=== PATIENT | male | born 1945 | race Caucasian/White ===

== ENCOUNTER → 2020-08-29 | Outpatient (CLI) | payer MEDICARE ==
[~2020-08-29] MED LIST: ALLO100T PO; APIX2.5T PO; ATOR10 PO; FISH1CAP50 PO; FOLI1TAB15 PO; FOLI1TAB61 PO; FURO40TA5 PO; GLIP5TAB11 PO; ISOS60TA4 PO; MULT-1192 PO; NITR0.4T SL; THIAM100TB PO
== END | disposition home or self-care (01) ==
LOC: SHCH 08:30
PROVIDERS: ATTEND Internal Medicine Cardiovascular Disease
DX: I50.22 Chronic systolic (congestive) heart failure (principal)
CPT/HCPCS: 93306; 93356

== ENCOUNTER → 2021-06-20 | Outpatient (CLI) | payer MEDICARE ==
[~2021-06-20] MED LIST changes: -ISOS60TA4 PO; +ISOS60TA77 PO
== END | disposition home or self-care (01) ==
LOC: RAH 11:11
PROVIDERS: ATTEND Internal Medicine Cardiovascular Disease
DX: I13.0 Hypertensive heart and chronic kidney disease with heart failure and stage 1 through stage 4 chronic kidney disease, or unspecified chronic kidney disease (principal); N18.4 Chronic kidney disease, stage 4 (severe); I50.22 Chronic systolic (congestive) heart failure; I65.23 Occlusion and stenosis of bilateral carotid arteries; R09.89 Other specified symptoms and signs involving the circulatory and respiratory systems
CPT/HCPCS: 93880

== ENCOUNTER 2021-07-09 22:09 | Inpatient (IN) | payer MEDICARE ==
[~2021-07-09] VITALS: Ht 182.9 cm; Wt 99.6 kg
[2021-07-09 22:16] VITALS: BP 143/90
[2021-07-09] MEDS ORDERED: MORPHINE 2 MG SYG IVP ONE (22:30)
[2021-07-09] MEDS ORDERED: ONDANSETRON 4MG INJ IVP ONE (22:30)
[2021-07-09 22:37] LABS: BASOPHILS % (AUTO) 0.2 % (0.0-5.0); HEMATOCRIT 44.7 % (42-54); LYMPHOCYTES % (AUTO) 5.2 % (21.0-51.0); MEAN CORPUSCULAR HGB CONC 33.8 g/dL (32.0-36.0); MEAN CORPUSCULAR VOLUME 74.1 fL (79-99); MONOCYTES % (AUTO) 5.6 % (3.0-13.0); NEUTROPHILS % (AUTO) 88.1 % (40.0-77.0); NUCLEATED RED BLOOD CELLS 0.1 % (0.0-0.19); PLATELET COUNT (AUTO) 287 K/uL (130-400); RED BLOOD CELL COUNT(AUTO) 6.03 MIL/uL (4.50-6.20); RED CELL DISTRIBUTION WIDTH 21.2 % (11.0-15.5); WHITE BLOOD COUNT (AUTO) 23.9 K/uL (4.8-10.8)
[2021-07-09 22:45] VITALS: BP 153/81
[2021-07-09 22:53] LABS: ALBUMIN 3.7 g/dL (3.5-5.0); BILIRUBIN,TOTAL 0.9 mg/dL (0.2-1.0); CREATININE 4.9 mg/dL (0.5-1.5); POTASSIUM 4.7 mmol/L (3.5-5.1)
[2021-07-09 22:54] LABS: INR 1.3 (0.85-1.15); PROTHROMBIN TIME 13.8 SEC (9.6-11.6)
[2021-07-09 22:56] LABS: PARTIAL THROMBOPLASTIN TIME 31.3 SEC (26.3-35.5)
[2021-07-09 23:07] LABS: B-TYPE NATRIURETIC PEPTIDE 1330 pg/mL (0-100)
[2021-07-09] MEDS ORDERED: APIX5TAB PO (23:33)
[2021-07-09] MEDS ORDERED: ALLO100T PO (23:33)
[2021-07-09] MEDS ORDERED: CLON0.2T PO (23:33)
[2021-07-09] MEDS ORDERED: ISOS60TA77 PO (23:33)
[2021-07-09] MEDS ORDERED: FURO20TA4 PO (23:33)
[2021-07-09] MEDS ORDERED: LEVO500T89 PO (23:33)
[2021-07-09] MEDS ORDERED: CARV25TA PO (23:33)
[2021-07-09] MEDS ORDERED: SACU1TAB7 PO (23:33)
[2021-07-09] MEDS ORDERED: AMLO-258 PO (23:33)
[2021-07-09 23:56] VITALS: BP 145/68
[2021-07-10] VITALS (18 sets, daily range): BP systolic 86–162; BP diastolic 45–92
[2021-07-10] MEDS ORDERED: ONDANSETRON 4MG INJ ONE ×2 (00:49→05:18)
[2021-07-10] MEDS ORDERED: MORPHINE 4 MG SYG ONE (00:49)
[2021-07-10] MEDS ORDERED: CLOPIDOGREL 300MG TAB PO SCH (01:00)
[2021-07-10] MEDS ORDERED: MORPHINE 4 MG SYG IV ONE (01:00)
[2021-07-10] MEDS ORDERED: ENOXAPARIN SODIUM 80 MG/0.8 ML SQ ONE ×2 (01:00→05:18)
[2021-07-10] MEDS ORDERED: GLUCAGON 1MG KIT 1 MG ML IM PRN (01:30)
[2021-07-10] MEDS ORDERED: DEXTROSE 50%-WATER 50 ML DISP.SYRIN IV PRN (01:30)
[2021-07-10] MEDS ORDERED: ACETAMINOPHEN 325 MG TAB PO PRN (01:30)
[2021-07-10] MEDS ORDERED: MORPHINE 2 MG SYG IVP PRN (02:00)
[2021-07-10] MEDS ORDERED: CLOPIDOGREL 300MG TAB ONE (05:18)
[2021-07-10] MEDS: MORPHINE 2 MG SYG IVP PRN (05:40)
[2021-07-10 06:35] LABS: BASOPHILS % (AUTO) 0.1 % (0.0-5.0); EOSINOPHILS % (AUTO) 0.1 % (0.0-8.0); HEMATOCRIT 45.8 % (42-54); LYMPHOCYTES % (AUTO) 6.2 % (21.0-51.0); MEAN CORPUSCULAR HGB CONC 33.2 g/dL (32.0-36.0); MEAN CORPUSCULAR VOLUME 75.3 fL (79-99); NEUTROPHILS % (AUTO) 85.5 % (40.0-77.0); PLATELET COUNT (AUTO) 310 K/uL (130-400); RED BLOOD CELL COUNT(AUTO) 6.08 MIL/uL (4.50-6.20); RED CELL DISTRIBUTION WIDTH 21.4 % (11.0-15.5); WHITE BLOOD COUNT (AUTO) 22.9 K/uL (4.8-10.8)
[2021-07-10 06:45] LABS: HEMOGLOBIN A1C 6.6 % (4.0-6.0)
[2021-07-10 06:52] LABS: CREATININE 4.8 mg/dL (0.5-1.5); MAGNESIUM 2.7 mg/dL (1.80-2.40); POTASSIUM 4.5 mmol/L (3.5-5.1)
[2021-07-10] MEDS: INSULIN R PO SS1 SQ SCH ×4 (07:30→21:00)
[2021-07-10] MEDS: ONDANSETRON ODT 4MG TAB PO PRN (07:34)
[2021-07-10] MEDS ORDERED: FUROSEMIDE 40MG VIAL IV SCH (08:30)
[2021-07-10] MEDS ORDERED: ENOXAPARIN SODIUM 40 MG/0.4 ML SYRINGE SQ SCH (09:00)
[2021-07-10 09:10] LABS: APPEARANCE,URINE Clear (CLEAR); BILIRUBIN,URINE Negative (NEGATIVE); COLOR,URINE Yellow (YELLOW); GLUCOSE, URINE (UA) Negative (NEGATIVE); KETONES,URINE Negative (NEGATIVE); LEUKOCYTE ESTERASE ,URINE Negative (NEGATIVE); NITRATE,URINE Negative (NEGATIVE); OCCULT BLOOD,URINE Negative (NEGATIVE); PROTEIN,URINE Negative (NEGATIVE)
[2021-07-10] MEDS: ASPIRIN 81MG CHEW TAB PO SCH (09:59)
[2021-07-10] MEDS ORDERED: ZOSYN 3.375GM+NS 50ML 50 ML IV SCH (14:30)
[2021-07-10] MEDS ORDERED: ZOSYN 3.375GM+NS 50ML 50 ML ONE (14:47)
[2021-07-10 15:54] LABS: ABG BASE EXCESS -15.4 mmol/L (-2.0-3.0); ABG HCO3 13.5 mmol/L (21.0-28.0); ABG OXYGEN SATURATION 88.3 % (95.0-99.0); ABG PCO2 42 mmHg (35-48)
[2021-07-10] MEDS ORDERED: SODIUM BICARB 50MEQ 50ML VIAL 100 ML ONE (16:04)
[2021-07-10] MEDS: PIP/TAZ ZOSYN 3.375G 3.375 GM VIAL IVPB SCH (16:24)
[2021-07-10] MEDS: 0.9%NACL 50ML 50 ML IV SCH (16:24)
[2021-07-10 16:33] LABS: BASOPHILS % (AUTO) 0.3 % (0.0-5.0); HEMATOCRIT 50.7 % (42-54); LYMPHOCYTES % (AUTO) 10.4 % (21.0-51.0); MEAN CORPUSCULAR HEMOGLOBIN 25.2 pg (27.0-33.0); MEAN CORPUSCULAR HGB CONC 32.5 g/dL (32.0-36.0); MEAN CORPUSCULAR VOLUME 77.5 fL (79-99); MONOCYTES % (AUTO) 7.9 % (3.0-13.0); NEUTROPHILS % (AUTO) 80.3 % (40.0-77.0); NUCLEATED RED BLOOD CELLS 0.1 % (0.0-0.19); PLATELET COUNT (AUTO) 343 K/uL (130-400); RED BLOOD CELL COUNT(AUTO) 6.54 MIL/uL (4.50-6.20); RED CELL DISTRIBUTION WIDTH 22.1 % (11.0-15.5)
[2021-07-10 16:40] LABS: INR 1.38 (0.85-1.15); PROTHROMBIN TIME 14.6 SEC (9.6-11.6)
[2021-07-10 16:41] LABS: PARTIAL THROMBOPLASTIN TIME 36.1 SEC (26.3-35.5)
[2021-07-10] MEDS ORDERED: FUROSEMIDE 40MG VIAL IV ONE (17:00)
[2021-07-10 17:03] LABS: ALBUMIN 3.6 g/dL (3.5-5.0); BILIRUBIN,TOTAL 1.2 mg/dL (0.2-1.0); PHOSPHORUS 7.5 mg/dL (2.5-4.9); TOTAL PROTEIN, SERUM 8.3 g/dL (6.0-8.3)
[2021-07-10 18:15] LABS: ABG BASE EXCESS -3.1 mmol/L (-2.0-3.0); ABG HCO3 21.3 mmol/L (21.0-28.0); ABG OXYGEN SATURATION 98.2 % (95.0-99.0); ABG PCO2 37 mmHg (35-48)
[2021-07-10 18:17] LABS: ABG BASE EXCESS -4.3 mmol/L (-2.0-3.0); ABG HCO3 19.5 mmol/L (21.0-28.0); ABG OXYGEN SATURATION 98.3 % (95.0-99.0); ABG PCO2 33 mmHg (35-48)
[2021-07-10] MEDS: HEPARIN 5,000 UNIT VIAL SQ SCH (18:48)
[2021-07-10] MEDS: IPRATROPIUM/ALBUTEROL SULFATE 3 ML SOLUTION IH SCH (20:30)
[2021-07-10] MEDS: SOLU-MEDROL 40MG VIAL IVP SCH (22:29)
[2021-07-11] VITALS (13 sets, daily range): BP systolic 126–154; BP diastolic 48–90
[2021-07-11] MEDS: IPRATROPIUM/ALBUTEROL SULFATE 3 ML SOLUTION IH SCH ×4 (00:16→19:23)
[2021-07-11] MEDS ORDERED: ZOSYN 3.375GM+NS 50ML 50 ML ONE ×2 (03:27→13:56)
[2021-07-11] MEDS: 0.9%NACL 50ML 50 ML IV SCH ×2 (03:49→14:09)
[2021-07-11] MEDS: PIP/TAZ ZOSYN 3.375G 3.375 GM VIAL IVPB SCH ×2 (03:49→14:09)
[2021-07-11 03:50] LABS: HEMATOCRIT 44.7 % (42-54); MEAN CORPUSCULAR HEMOGLOBIN 24.9 pg (27.0-33.0); MEAN CORPUSCULAR HGB CONC 33.8 g/dL (32.0-36.0); MEAN CORPUSCULAR VOLUME 73.8 fL (79-99); RED BLOOD CELL COUNT(AUTO) 6.06 MIL/uL (4.50-6.20); RED CELL DISTRIBUTION WIDTH 21.1 % (11.0-15.5); WHITE BLOOD COUNT (AUTO) 20.4 K/uL (4.8-10.8)
[2021-07-11 04:05] LABS: MAGNESIUM 2.7 mg/dL (1.80-2.40); POTASSIUM 4.4 mmol/L (3.5-5.1)
[2021-07-11] MEDS: HEPARIN 5,000 UNIT VIAL SQ SCH ×2 (06:00→17:44)
[2021-07-11] MEDS: INSULIN R PO SS1 SQ SCH ×4 (07:30→21:39)
[2021-07-11 08:43] LABS: ALBUMIN 3.5 g/dL (3.5-5.0)
[2021-07-11] MEDS: SOLU-MEDROL 40MG VIAL IVP SCH (08:43)
[2021-07-11] MEDS: ASPIRIN 81MG CHEW TAB PO SCH (08:43)
[2021-07-11 09:05] LABS: % IRON SATURATION 11.3 % (30-44)
[2021-07-11] MEDS: ONDANSETRON ODT 4MG TAB PO PRN (09:38)
[2021-07-11] MEDS ORDERED: CITRIC ACID/SODIUM CITRATE 30 ML UDCUP PO SCH (14:30)
[2021-07-11] MEDS ORDERED: CLOPIDOGREL 75MG TAB PO SCH (14:30)
[2021-07-11] MEDS: CITRIC ACID/SODIUM CITRATE 30 ML UDCUP PO SCH (20:45)
[2021-07-12] VITALS (20 sets, daily range): BP systolic 104–146; BP diastolic 52–95
[2021-07-12] MEDS ORDERED: ZOSYN 3.375GM+NS 50ML 50 ML ONE ×2 (01:47→14:07)
[2021-07-12] MEDS: PIP/TAZ ZOSYN 3.375G 3.375 GM VIAL IVPB SCH ×2 (01:54→14:17)
[2021-07-12] MEDS: 0.9%NACL 50ML 50 ML IV SCH ×2 (01:54→14:18)
[2021-07-12 03:41] LABS: PHOSPHORUS 6.2 mg/dL (2.5-4.9); POTASSIUM 3.8 mmol/L (3.5-5.1)
[2021-07-12] MEDS: INSULIN R PO SS1 SQ SCH ×4 (05:55→21:42)
[2021-07-12] MEDS ORDERED: FUROSEMIDE 40MG VIAL IV SCH (07:00)
[2021-07-12] MEDS: IPRATROPIUM/ALBUTEROL SULFATE 3 ML SOLUTION IH SCH ×4 (07:28→18:00)
[2021-07-12] MEDS: HEPARIN 5,000 UNIT VIAL SQ SCH ×2 (08:00→17:40)
[2021-07-12] MEDS: ASPIRIN 81MG CHEW TAB PO SCH (09:00)
[2021-07-12] MEDS: CLOPIDOGREL 75MG TAB PO SCH (09:00)
[2021-07-12] MEDS ORDERED: PHARMACY COMMUNICATION MISC SCH (09:30)
[2021-07-12] MEDS ORDERED: ISOSORBIDE MONO 60MG SR TAB PO SCH (10:00)
[2021-07-12] MEDS ORDERED: HEPARIN 1,000 UNIT VIAL ONE (11:57)
[2021-07-12] MEDS ORDERED: SODIUM BICARB 50MEQ 50ML VIAL 50 ML ONE (11:57)
[2021-07-12] MEDS ORDERED: LIDOCAINE HCL 400MG/20ML VIAL ONE (11:57)
[2021-07-12 14:12] LABS: HEPATITIS Bs ANTIGEN SCREEN P Negative (Negative)
[2021-07-12] MEDS: CITRIC ACID/SODIUM CITRATE 30 ML UDCUP PO SCH ×2 (14:18→21:40)
[2021-07-12] MEDS: ACETAMINOPHEN 325 MG TAB PO PRN (16:13)
[2021-07-12] MEDS ORDERED: 0.9%NACL 1000ML 1,000 ML IV PRN (17:30)
[2021-07-12] MEDS ORDERED: HEPARIN 5,000 UNIT VIAL IRRIG PRN (17:30)
[2021-07-12 18:55] LABS: HEMATOCRIT 39.7 % (42-54)
[2021-07-12 19:06] LABS: ALBUMIN 3.1 g/dL (3.5-5.0); CREATININE 3.3 mg/dL (0.5-1.5); HEMOGLOBIN A1C 6.8 % (4.0-6.0)
[2021-07-12 19:46] LABS: % IRON SATURATION 11.2 % (30-44)
[2021-07-12] MEDS ORDERED: CARVEDILOL 6.25 MG TABLET PO SCH (21:00)
[2021-07-12] MEDS ORDERED: CARVEDILOL 12.5 MG TABLET PO SCH (21:00)
[2021-07-12] MEDS: BENZOCAINE/MENTH/CETYLPYRD CL 1 EACH LOZENGE MM SCH (21:40)
[2021-07-13] VITALS (20 sets, daily range): BP systolic 84–152; BP diastolic 48–84
[2021-07-13] MEDS: ONDANSETRON ODT 4MG TAB PO PRN ×2 (00:35→16:48)
[2021-07-13] MEDS: IPRATROPIUM/ALBUTEROL SULFATE 3 ML SOLUTION IH SCH ×4 (01:10→19:11)
[2021-07-13 01:13] LABS: HEMATOCRIT 39.1 % (42-54); MEAN CORPUSCULAR HEMOGLOBIN 25.5 pg (27.0-33.0); MEAN CORPUSCULAR HGB CONC 34.3 g/dL (32.0-36.0); MEAN CORPUSCULAR VOLUME 74.5 fL (79-99); NUCLEATED RED BLOOD CELLS 0.1 % (0.0-0.19); RED BLOOD CELL COUNT(AUTO) 5.25 MIL/uL (4.50-6.20); RED CELL DISTRIBUTION WIDTH 20.7 % (11.0-15.5); WHITE BLOOD COUNT (AUTO) 27.3 K/uL (4.8-10.8)
[2021-07-13 01:23] LABS: CREATININE 4.4 mg/dL (0.5-1.5); MAGNESIUM 2.6 mg/dL (1.80-2.40); PHOSPHORUS 5.1 mg/dL (2.5-4.9); POTASSIUM 3.8 mmol/L (3.5-5.1)
[2021-07-13] MEDS ORDERED: ZOSYN 3.375GM+NS 50ML 50 ML ONE ×2 (02:45→18:07)
[2021-07-13] MEDS: 0.9%NACL 50ML 50 ML IV SCH ×2 (02:50→14:30)
[2021-07-13] MEDS: PIP/TAZ ZOSYN 3.375G 3.375 GM VIAL IVPB SCH ×2 (02:50→14:30)
[2021-07-13] MEDS: HEPARIN 5,000 UNIT VIAL SQ SCH ×2 (05:41→18:33)
[2021-07-13] MEDS: INSULIN R PO SS1 SQ SCH ×4 (05:59→20:18)
[2021-07-13 08:50] LABS: HEMATOCRIT 44.9 % (42-54); MEAN CORPUSCULAR HEMOGLOBIN 25.3 pg (27.0-33.0); MEAN CORPUSCULAR HGB CONC 33.6 g/dL (32.0-36.0); MEAN CORPUSCULAR VOLUME 75.1 fL (79-99); NUCLEATED RED BLOOD CELLS 0.2 % (0.0-0.19); RED BLOOD CELL COUNT(AUTO) 5.98 MIL/uL (4.50-6.20); RED CELL DISTRIBUTION WIDTH 21.3 % (11.0-15.5); WHITE BLOOD COUNT (AUTO) 26.3 K/uL (4.8-10.8)
[2021-07-13 09:04] LABS: CREATININE 4.5 mg/dL (0.5-1.5); MAGNESIUM 2.8 mg/dL (1.80-2.40); PHOSPHORUS 5.4 mg/dL (2.5-4.9); POTASSIUM 4.1 mmol/L (3.5-5.1)
[2021-07-13] MEDS: ASPIRIN 81MG CHEW TAB PO SCH (09:43)
[2021-07-13] MEDS: CITRIC ACID/SODIUM CITRATE 30 ML UDCUP PO SCH ×2 (09:43→20:18)
[2021-07-13] MEDS: CARVEDILOL 12.5 MG TABLET PO SCH ×2 (09:44→20:19)
[2021-07-13] MEDS: BENZOCAINE/MENTH/CETYLPYRD CL 1 EACH LOZENGE MM SCH ×3 (09:44→20:18)
[2021-07-13] MEDS: CLOPIDOGREL 75MG TAB PO SCH (09:49)
[2021-07-13] MEDS: LIDOCAINE HCL 2% JELLY 5 ML TP SCH ×2 (11:12→20:19)
[2021-07-13] MEDS: HYDROCORTISONE 25 MG SUPPOSITORY PR SCH ×2 (11:12→20:19)
[2021-07-13] MEDS: ACETAMINOPHEN 325 MG TAB PO PRN (11:15)
[2021-07-13] MEDS ORDERED: ALBUMIN (HUMAN) 25% 100 ML IV STA (13:41)
[2021-07-13] MEDS ORDERED: HEPARIN 5,000 UNIT VIAL IV SCH (14:00)
[2021-07-13] MEDS: MORPHINE 2 MG SYG IVP PRN (16:48)
[2021-07-13] MEDS ORDERED: LORAZEPAM 2 MG/ML 1 ML VIAL IVP ONE (18:30)
[2021-07-14] MEDS: IPRATROPIUM/ALBUTEROL SULFATE 3 ML SOLUTION IH SCH ×4 (00:40→18:52)
[2021-07-14] MEDS ORDERED: ZOSYN 3.375GM+NS 50ML 50 ML ONE ×2 (02:14→13:46)
[2021-07-14] MEDS: 0.9%NACL 50ML 50 ML IV SCH ×2 (02:51→13:57)
[2021-07-14] MEDS: PIP/TAZ ZOSYN 3.375G 3.375 GM VIAL IVPB SCH ×2 (02:51→13:57)
[2021-07-14] MEDS: HEPARIN 5,000 UNIT VIAL SQ SCH ×2 (06:08→18:54)
[2021-07-14] MEDS: INSULIN R PO SS1 SQ SCH ×4 (06:30→20:08)
[2021-07-14] MEDS ORDERED: HALOPERIDOL DECAN(MONTHLY) 100 MG/ML IM SCH (06:30)
[2021-07-14 08:06] VITALS: BP 117/84
[2021-07-14] MEDS: HYDROCORTISONE 25 MG SUPPOSITORY PR SCH ×2 (09:00→19:37)
[2021-07-14] MEDS ORDERED: HALOPERIDOL 1 MG TABLET PO PRN (09:00)
[2021-07-14] MEDS: BENZOCAINE/MENTH/CETYLPYRD CL 1 EACH LOZENGE MM SCH ×3 (09:00→19:46)
[2021-07-14] MEDS: LIDOCAINE HCL 2% JELLY 5 ML TP SCH ×3 (09:00→19:37)
[2021-07-14 09:09] LABS: HEPATITIS Bs ANTIGEN SCREEN P Negative (Negative)
[2021-07-14] MEDS: CLOPIDOGREL 75MG TAB PO SCH (09:15)
[2021-07-14] MEDS: ASPIRIN 81MG CHEW TAB PO SCH (09:15)
[2021-07-14] MEDS: CARVEDILOL 12.5 MG TABLET PO SCH ×2 (09:16→20:08)
[2021-07-14] MEDS: CITRIC ACID/SODIUM CITRATE 30 ML UDCUP PO SCH ×3 (09:16→20:02)
[2021-07-14 10:46] LABS: MEAN CORPUSCULAR HEMOGLOBIN 25.9 pg (27.0-33.0); MEAN CORPUSCULAR HGB CONC 33.5 g/dL (32.0-36.0); MEAN CORPUSCULAR VOLUME 77.3 fL (79-99); NUCLEATED RED BLOOD CELLS 0.7 % (0.0-0.19); RED BLOOD CELL COUNT(AUTO) 5.56 MIL/uL (4.50-6.20); RED CELL DISTRIBUTION WIDTH 21.8 % (11.0-15.5); WHITE BLOOD COUNT (AUTO) 29.2 K/uL (4.8-10.8)
[2021-07-14 10:56] LABS: CREATININE 4.8 mg/dL (0.5-1.5); POTASSIUM 4.7 mmol/L (3.5-5.1)
[2021-07-14 12:18] VITALS: BP 127/54
[2021-07-14] MEDS ORDERED: COMPOUND IV REFRIGERATED 1 EACH IVSOLN MISC PRN (12:30)
[2021-07-14] MEDS ORDERED: VANCOMYCIN PROTOCOL PER PHARMACY IV SCH (12:30)
[2021-07-14] MEDS ORDERED: VANCOMYCIN 1.25GM/NS 250ML IVPB SCH ×2 (13:00)
[2021-07-14 17:06] VITALS: BP 107/60
[2021-07-14] MEDS: MORPHINE 2 MG SYG IVP PRN ×2 (17:59→19:47)
[2021-07-14 19:00] VITALS: BP 96/47
[2021-07-14 23:00] VITALS: BP 93/38
[2021-07-15] MEDS ORDERED: ZOSYN 3.375GM+NS 50ML 50 ML ONE ×2 (01:45→14:31)
[2021-07-15] MEDS: 0.9%NACL 50ML 50 ML IV SCH ×2 (02:28→14:39)
[2021-07-15] MEDS: PIP/TAZ ZOSYN 3.375G 3.375 GM VIAL IVPB SCH ×2 (02:28→14:39)
[2021-07-15] MEDS: IPRATROPIUM/ALBUTEROL SULFATE 3 ML SOLUTION IH SCH ×5 (02:30→23:01)
[2021-07-15] MEDS: MORPHINE 2 MG SYG IVP PRN ×4 (02:53→22:08)
[2021-07-15 03:00] VITALS: BP 96/51
[2021-07-15 03:41] LABS: HEMATOCRIT 39.7 % (42-54); MEAN CORPUSCULAR HEMOGLOBIN 25.7 pg (27.0-33.0); MEAN CORPUSCULAR VOLUME 75.6 fL (79-99); PLATELET COUNT (AUTO) 250 K/uL (130-400); RED BLOOD CELL COUNT(AUTO) 5.25 MIL/uL (4.50-6.20); RED CELL DISTRIBUTION WIDTH 21.3 % (11.0-15.5)
[2021-07-15 03:44] LABS: WHITE BLOOD COUNT (AUTO) 30.2 K/uL (4.8-10.8)
[2021-07-15 03:49] LABS: CREATININE 5.4 mg/dL (0.5-1.5); POTASSIUM 4.3 mmol/L (3.5-5.1)
[2021-07-15 04:34] LABS: LYMPHOCYTES % (MANUAL) 6 % (22-44); MONOCYTES % (MANUAL) 4 % (2-9); REACTIVE LYMPHOCYTES 2 % (0-0); SEGMENTED NEUTROPHILS % 88 % (40-70)
[2021-07-15 04:35] LABS: MAN.DIFF COMMENT-IMPRESSION MANUAL DIFFERENTIAL; PLATELET MORPHOLOGY COMMENT ADEQUATE
[2021-07-15] MEDS: INSULIN R PO SS1 SQ SCH ×4 (05:08→19:43)
[2021-07-15] MEDS: HEPARIN 5,000 UNIT VIAL SQ SCH ×3 (05:56→17:56)
[2021-07-15] MEDS: CLOPIDOGREL 75MG TAB PO SCH (07:50)
[2021-07-15] MEDS: CITRIC ACID/SODIUM CITRATE 30 ML UDCUP PO SCH ×2 (07:51→19:42)
[2021-07-15] MEDS: ASPIRIN 81MG CHEW TAB PO SCH (07:51)
[2021-07-15] MEDS: LIDOCAINE HCL 2% JELLY 5 ML TP SCH ×3 (07:51→19:43)
[2021-07-15] MEDS: HYDROCORTISONE 25 MG SUPPOSITORY PR SCH ×2 (07:51→19:42)
[2021-07-15] MEDS: BENZOCAINE/MENTH/CETYLPYRD CL 1 EACH LOZENGE MM SCH ×3 (07:51→19:42)
[2021-07-15] MEDS: CARVEDILOL 12.5 MG TABLET PO SCH ×2 (07:55→20:45)
[2021-07-15 08:29] VITALS: BP 108/56
[2021-07-15 12:14] VITALS: BP 110/66
[2021-07-15] MEDS ORDERED: HALOPERIDOL INJ 5 MG/ML VIAL IM PRN (15:00)
[2021-07-15 16:55] VITALS: BP 125/72
[2021-07-15 19:32] VITALS: BP 125/62
[2021-07-15] MEDS: HALOPERIDOL 1 MG TABLET PO SCH (20:46)
[2021-07-15 23:44] VITALS: BP 108/61
[2021-07-16] MEDS ORDERED: MORPHINE 2 MG SYG IVP ONE (01:00)
[2021-07-16 04:03] VITALS: BP 117/61
[2021-07-16] MEDS: HEPARIN 5,000 UNIT VIAL SQ SCH (06:00)
[2021-07-16] MEDS: MORPHINE 2 MG SYG IVP PRN ×4 (06:08→15:11)
[2021-07-16] MEDS: IPRATROPIUM/ALBUTEROL SULFATE 3 ML SOLUTION IH SCH ×2 (06:42→12:12)
[2021-07-16 07:30] VITALS: BP 120/74
[2021-07-16] MEDS: INSULIN R PO SS1 SQ SCH (07:30)
[2021-07-16] MEDS: BENZOCAINE/MENTH/CETYLPYRD CL 1 EACH LOZENGE MM SCH ×2 (07:35→12:50)
[2021-07-16] MEDS: HALOPERIDOL 1 MG TABLET PO SCH (07:36)
[2021-07-16] MEDS: HYDROCORTISONE 25 MG SUPPOSITORY PR SCH (07:36)
[2021-07-16] MEDS: CITRIC ACID/SODIUM CITRATE 30 ML UDCUP PO SCH (07:36)
[2021-07-16] MEDS: ASPIRIN 81MG CHEW TAB PO SCH (07:37)
[2021-07-16] MEDS: CLOPIDOGREL 75MG TAB PO SCH (07:37)
[2021-07-16] MEDS: LIDOCAINE HCL 2% JELLY 5 ML TP SCH ×2 (07:37→12:50)
[2021-07-16] MEDS: CARVEDILOL 12.5 MG TABLET PO SCH (07:41)
[2021-07-16 11:05] VITALS: BP 118/65
== END 2021-07-16 15:36 | disposition hospice, home (50) | DRG 871 ==
LOC: EDH 22:09 → EDHIP 07-10 00:44 → 4BH 07-10 13:53 → 2DH 07-10 19:51
PROVIDERS: ADMIT Internal Medicine Infectious Disease; ATTEND Internal Medicine Infectious Disease
PROC: 5A09357 Assistance with Respiratory Ventilation, Less than 24 Consecutive Hours, Continuous Positive Airway Pressure (ICD-10-PCS; 2021-07-10)
PROC: 05HM33Z Insertion of Infusion Device into Right Internal Jugular Vein, Percutaneous Approach (ICD-10-PCS; principal; 2021-07-12)
PROC: B543ZZA Ultrasonography of Right Jugular Veins, Guidance (ICD-10-PCS; 2021-07-12)
PROC: 5A1D70Z Performance of Urinary Filtration, Intermittent, Less than 6 Hours Per Day (ICD-10-PCS; 2021-07-12)
PROC: 5A09357 Assistance with Respiratory Ventilation, Less than 24 Consecutive Hours, Continuous Positive Airway Pressure (ICD-10-PCS; 2021-07-12)
PROC: 5A1D70Z Performance of Urinary Filtration, Intermittent, Less than 6 Hours Per Day (ICD-10-PCS; 2021-07-13)
PROC: 5A09357 Assistance with Respiratory Ventilation, Less than 24 Consecutive Hours, Continuous Positive Airway Pressure (ICD-10-PCS; 2021-07-13)
PROC: 5A09357 Assistance with Respiratory Ventilation, Less than 24 Consecutive Hours, Continuous Positive Airway Pressure (ICD-10-PCS; 2021-07-13)
DX: A41.9 Sepsis, unspecified organism (principal); I50.43 Acute on chronic combined systolic (congestive) and diastolic (congestive) heart failure; J18.9 Pneumonia, unspecified organism; I21.4 Non-ST elevation (NSTEMI) myocardial infarction; N18.6 End stage renal disease; J96.21 Acute and chronic respiratory failure with hypoxia; E87.2 Acidosis; N17.9 Acute kidney failure, unspecified; I13.2 Hypertensive heart and chronic kidney disease with heart failure and with stage 5 chronic kidney disease, or end stage renal disease; I48.21 Permanent atrial fibrillation; I25.5 Ischemic cardiomyopathy; Z66 Do not resuscitate; E11.51 Type 2 diabetes mellitus with diabetic peripheral angiopathy without gangrene; E78.2 Mixed hyperlipidemia; E11.22 Type 2 diabetes mellitus with diabetic chronic kidney disease; I27.20 Pulmonary hypertension, unspecified; Z20.822 Contact with and (suspected) exposure to COVID-19; Z51.5 Encounter for palliative care; I25.10 Atherosclerotic heart disease of native coronary artery without angina pectoris; M10.9 Gout, unspecified; E87.5 Hyperkalemia; E87.70 Fluid overload, unspecified; I49.3 Ventricular premature depolarization; E66.01 Morbid (severe) obesity due to excess calories; R53.81 Other malaise; K64.8 Other hemorrhoids; K64.4 Residual hemorrhoidal skin tags; Z68.29 Body mass index [BMI] 29.0-29.9, adult; I25.2 Old myocardial infarction; Z95.0 Presence of cardiac pacemaker; Z90.5 Acquired absence of kidney; Z79.02 Long term (current) use of antithrombotics/antiplatelets; Z79.01 Long term (current) use of anticoagulants; Z79.899 Other long term (current) drug therapy; Z85.528 Personal history of other malignant neoplasm of kidney; Z95.5 Presence of coronary angioplasty implant and graft; Z95.1 Presence of aortocoronary bypass graft; Z83.3 Family history of diabetes mellitus; Z82.49 Family history of ischemic heart disease and other diseases of the circulatory system
CPT/HCPCS: 36415; 36556; 36600; 71045; 71250; 77001; 80048; 80053; 80061; 81003; 82040; 82270; 82435; 82550; 82565; 82728; 82803; 82947; 82948; 83036; 83540; 83550; 83605; 83735; 83874; 83880; 84100; 84132; 84295; 84484; 84520; 85014; 85018; 85025; 85027; 85378; 85610; 85730; 86701; 86704; 86706; 87040; 87088; 87340; 87390; 87635; 90935; 93005; 93306; 93356; 94640; 94660; 94664; C1752; G0378; J1644; J1650; J1815; J1940; J2060; J2270; J2405; J2543; J2920; J3370; J3490; J7050; P9046